=== PATIENT | female | born 1935 | race Asian ===

== ENCOUNTER 2025-08-04 16:57 | Emergency (ER) | payer MEDICAID, OTHER ==
[~2025-08-04] VITALS: Ht 162.6 cm; Wt 68.0 kg
[2025-08-04 17:03] VITALS: O2SAT 98
[2025-08-04] MEDS ORDERED: SODIUM CHLORIDE 0.9% 1,000 ML IV ONE (17:15)
[2025-08-04] MEDS ORDERED: ETOMIDATE 2MG/ML 10ML VIAL IV ONE (19:15)
[2025-08-04] MEDS ORDERED: ROCURONIUM BROMIDE 10MG/ML VIAL 5ML IV ONE (19:15)
[2025-08-04] MEDS ORDERED: MIDAZOLAM 100MG/100ML PMX 100 ML IV PRN (19:15)
[2025-08-04 19:17] VITALS: PULSE 103; RESP 26
[2025-08-04] MEDS ORDERED: EPINEPHRINE 10 MG in SODIUM CHLORIDE 0.9% 240 ML IV PRN (19:45)
[2025-08-04] MEDS: NOREPINEPHRINE 8MG/250ML PMX 250 ML IV ONE (19:47)
[2025-08-04 20:06] VITALS: BP 174/37; PULSE 59; RESP 26; TEMP 36.7; O2SAT 100
[2025-08-04 20:10] LABS: HEMATOCRIT. 28.8 % (36.0-48.0); HEMOGLOBIN. 8.3 g/dL (12.0-16.0); MEAN PLATELET VOLUME 7.8 fl (7.4-10.4); PLATELET 227 x1000/uL (130-400); RED BLOOD CELL COUNT 2.74 mill/uL (4.2-5.4); RED CELL DISTRIBUTION WIDTH 16.0 % (11.6-14.6)
[2025-08-04 20:23] LABS: LYMPHOCYTES % MANUAL 47.0 % (20.0-60.0); MONOCYTES % MANUAL 6.0 % (2.0-8.0); NEUTROPHILS % MANUAL 47.0 % (45.0-75.0); PLATELET ESTIMATE NORMAL
[2025-08-04 20:28] LABS: CREATININE 1.6 mg/dL (0.6-1.0); UREA NITROGEN BLOOD 32 mg/dL (9-23)
[2025-08-04 20:30] LABS: ASPARTATE AMINOTRANSFERASE 32 IU/L (<34); BILIRUBIN DIRECT 0.3 mg/dL (<=3.0); BILIRUBIN TOTAL 0.7 mg/dL (0.1-1.0); PROTEIN TOTAL 4.6 g/dL (6.0-8.3)
[2025-08-04 20:33] LABS: TROPONIN I HIGH SENSITIVITY 42 ng/L (3.0-34)
[2025-08-04] MEDS ORDERED: SODIUM BICARBONATE 100 MEQ in DEXTROSE 5% WATER 900 ML IV SCH (21:30)
== END 2025-08-05 00:08 ==
LOC: ER 16:57 → CMPBEDREQ 08-05 07:35
DX: I49.01 Ventricular fibrillation (principal); I10 Essential (primary) hypertension; E11.9 Type 2 diabetes mellitus without complications; R06.02 Shortness of breath
CPT/HCPCS: 80076; 80048; 82010; 80320; 82550; 82962; 83930; 85025; 85379; 84484; 36415; 71045; 72170; 73030; 73060; 73070; 31500; 94070; 92950; 99291; 99292; 93005; J3490 ×3; J7070; J7030; 94002; G0480